=== PATIENT | male | born 1955 | race Hispanic/Latino ===

== ENCOUNTER 2021-01-12 20:16 | Emergency (ER) | payer MEDICARE, OTHER ==
[~2021-01-12] VITALS: Ht 170.2 cm; Wt 79.4 kg
[~2021-01-12 20:16] MED LIST: ATORVASTATIN CA40 MG PO; FENOFIBRATE134 MG PO; GLIPIZIDE ER2.5 MG PO; INVOKANA PO; IRBESARTAN-HCT1 EAC1 PO; METFORMIN HCL1000 MG PO; METFORMIN HCL500 MG PO
== END 2021-01-12 22:50 | disposition home or self-care (01) ==
LOC: FSED 20:30
DX: R11.2 Nausea with vomiting, unspecified (principal); I25.10 Atherosclerotic heart disease of native coronary artery without angina pectoris; E11.65 Type 2 diabetes mellitus with hyperglycemia; E78.00 Pure hypercholesterolemia, unspecified; I10 Essential (primary) hypertension
CPT/HCPCS: 71046; 80053; 82553; 83880; 84484; 85025; 93005; 99284